=== PATIENT | female | born 1980 | race Caucasian/White ===

== ENCOUNTER 2017-03-29 11:28 | Emergency (ER) | payer OTHER | END 2017-03-29 11:48 | disposition home or self-care (01) | LOC: BURERS 11:28 | DX: S39.92XA Unspecified injury of lower back, initial encounter (principal); G43.909 Migraine, unspecified, not intractable, without status migrainosus; Z87.891 Personal history of nicotine dependence; W01.198A Fall on same level from slipping, tripping and stumbling with subsequent striking against other object, initial encounter | CPT/HCPCS: 99283 ==